=== PATIENT | female | born 1985 | race Two or more races ===

== ENCOUNTER 2016-05-22 20:22 | Emergency (ER) | payer OTHER ==
[~2016-05-22] VITALS: Ht 152.4 cm; Wt 58.7 kg
[2016-05-22] MEDS ORDERED: SODIUM CHLORIDE 0.9% 1,000ML IVBOLUS ONE (21:00)
[2016-05-22] MEDS ORDERED: SODIUM CHLORIDE FLUSH 10ML SYR IVF ONE (21:00)
[2016-05-22] MEDS ORDERED: PROCHLORPERAZINE 5 MG/ML, 2ML IVPush ONE (21:00)
[2016-05-22] MEDS ORDERED: DIPHENHYDRAMINE 50 MG/ML, 1ML IVPush ONE (21:00)
[2016-05-22] MEDS ORDERED: PROCHLORPERAZINE 5 MG/ML, 2ML ONE (21:23)
[2016-05-22] MEDS ORDERED: DIPHENHYDRAMINE 50 MG/ML, 1ML ONE (21:23)
[2016-05-22] MEDS ORDERED: MORPHINE SULFATE 4 MG/ML, 1ML IVPush PRN (22:30)
[2016-05-22] MEDS ORDERED: MORPHINE SULFATE 4 MG/ML, 1ML ONE (22:33)
[2016-05-22 22:52] VITALS: BP 114/61
== END 2016-05-22 22:55 | disposition home or self-care (01) ==
LOC: ED 21:16
DX: G43.911 Migraine, unspecified, intractable, with status migrainosus (principal)
CPT/HCPCS: 96361; 96374; 96375; 99284; J0780; J1200; J7030